=== PATIENT | male | born 1990 | race Native Hawaiian/Other Pacific Islander ===

== ENCOUNTER 2017-12-23 17:49 | Emergency (ER) | payer OTHER ==
[2017-12-23 18:06] VITALS: BP 106/71; PULSE 84; RESP 18; TEMP 98.3; O2SAT 100
--- NOTE | 2017-12-23 18:37 | ED PDOC ---
HPI: Skin/Bite Injury Time Seen by Provider: 12/23/17 17:57 Chief Complaint (Nursing): Abnormal Skin Integrity Chief Complaint (Provider): Abscess History/Exam Limitations: no limitations Onset/Duration Of Symptoms: Days (x1 week) Current Symptoms Are (Timing): Still Present Location Of Injury: Right: Abdomen Additional Complaint(s): 27 year old male presents to ED with complaints of abdominal abscess x1 week. Patient states that it has grown in size with time and denies applying warm compresses. (-) drainage. PCP: None Past Medical History Reviewed: Historical Data, Nursing Documentation, Vital Signs Vital Signs: Last Vital Signs Temp 98.3 F 12/23/17 18:04 Pulse 84 12/23/17 18:04 Resp 18 12/23/17 18:04 BP 106/71 12/23/17 18:04 Pulse Ox 100 12/23/17 18:47 - Medical History PMH: No Chronic Diseases - Family History Family History: States: Unknown Family Hx - Living Arrangements Living Arrangements: With Family - Home Medications Home Medications: Ambulatory Orders Medication Instructions Recorded Sulfamethoxazole/Trimethoprim 1 each PO BID #20 tablet 12/23/17 [Bactrim 400-80 mg Tablet] - Allergies Allergies/Adverse Reactions: Allergies Allergy/AdvReac Type Severity Reaction Status Date / Time No Known Allergies Allergy Verified 12/23/17 18:04 Review of Systems ROS Statement: Except As Marked, All Systems Reviewed And Found Negative Gastrointestinal: Positive for: Other (abscess to abdomen, no drainage) Physical Exam - Reviewed Nursing Documentation Reviewed: Yes Vital Signs Reviewed: Yes - Physical Exam Appears: Positive for: Non-toxic, No Acute Distress Skin: Positive for: Normal Color, Warm, Dry Gastrointestinal/Abdominal: Positive for: Soft, Other (4 cm indurated abscess with bullae). Negative for: Tenderness Extremity: Positive for: Normal ROM, Deformity Neurologic/Psych: Positive for: Alert, Oriented. Negative for: Motor/Sensory Deficits - ECG O2 Sat by Pulse Oximetry: 100 (RA) Pulse Ox Interpretation: Normal Medical Decision Making Medical Decision Makin Initial impression: abscess Initial plan: * I&D See procedure note for detailed procedure. 1844 Patient tolerated procedure well. Will prescribe antibiotics upon discharge. Instructed patient to apply repeated warm compresses to the area to remove all discharge present. Patient is stable for discharge home. Scribe Attestation: Documented by Josseline Black, acting as a scribe for Jodie Santoyo PA-C Provider Scribe Attestation: All medical record entries made by the Scribe were at my direction and personally dictated by me. I have reviewed the chart and agree that the record accurately reflects my personal performance of the history, physical exam, medical decision making, and the department course for this patient. I have also personally directed, reviewed, and agree with the discharge instructions and disposition. Disposition - Clinical Impression Clinical Impression: Abscess - Disposition Referrals: [facility] [Outside] Disposition: Routine/Home Disposition Time: 19:00 Condition: IMPROVED Additional Instructions: Motrin for pain. Warm compresses or warm soaks. Oral antibiotics for infection. Prescriptions: Sulfamethoxazole/Trimethoprim [Bactrim 400-80 mg Tablet] 1 each PO BID #20 tablet Instructions: Abscess Incision and Drainage (DC) Forms: [employer] (Mongolian) Procedures - Time-Out Type of Procedure: I&D Site of Procedure: Abdomen Correct Patient (with visual ID + MR# on ID Band): Yes Correct Procedure: Yes Correct Site Marked: Yes X-Ray Marked: NA Medication Reconciliation / Bloodwork / Allergies Checked: Yes RN Name: Dana MARTIN/Tech: Jodie Santoyo - Incision and Drainage Site: Abdomen Blade Size: 11 I & D Procedure: sterile dressing applied Progress: Serosanguineous drainage expressed. Patient tolerated procedure well.
== END 2017-12-23 19:00 | disposition home or self-care (01) ==
LOC: H.ER 17:49
DX: L02.211 Cutaneous abscess of abdominal wall (principal)